=== PATIENT | male | born 1980 | race Two or more races ===

== ENCOUNTER → 2024-11-15 | Outpatient (CLI) | payer OTHER, SELFPAY ==
[2024-11-15 18:53] LABS: Absolute Neutrophil Count 3.5 X10^3/uL (2.0-7.7); Basophil# 0.06 X10^3/uL; Eosinophil# 0.03 X10^3/uL; Eosinophils% 0.5 % (0-5); Hematocrit 44.8 % (40-54); Hemoglobin 15.7 g/dL (13.0-16.5); Mean Corpuscular Hgb 32.2 pg (27.0-32.0); Mean Platelet Vol. 9.1 fl (6.2-12.0); Monocyte# 0.67 X10^3/uL; Monocyte% 11.6 % (0-10); NRBC Flagged by Analyzer 0 % (0-5); Neutrophil # 3.51 X10^3/uL (2.7-7.7); Neutrophil % 60.7 % (47-70); Platelet Count 303 K/mm3 (150-450); RBC Distribution Width SD 40.7 fl (35.1-43.9); Red Blood Count 4.87 M/mm3 (4.6-6.2); White Blood Count 5.8 K/mm3 (4.4-11.0)
[2024-11-15 19:30] LABS: ALB/GLOB Ratio 1.4 RATIO (0.9-2.4); AST(SGOT) 44 U/L (<=37); Alanine Aminotransfer ALT/SGPT 75 U/L (<=46); Albumin, Serum 4.7 g/dL (3.5-5.0); Alkaline Phosphatase 73 U/L (40-129); Anion Gap 14 (5-15); BUN 18 mg/dL (4-19); BUN/Creat Ratio 16.1 RATIO (10-20); Calcium,Total 10.1 mg/dL (7.6-11.0); Carbon Dioxide 23.1 mmol/L (21.0-32.0); Chloride 101 mmol/L (98-108); Creatinine, Serum 1.13 mg/dL (0.70-1.20); EST Glomerular Filtration Rate 83 (>60); Globulin 3.3 g/dL (2.2-4.2); Glucose 94 mg/dL (70-99); Potassium 4.4 mmol/L (3.3-5.1); Sodium Level 138 mmol/L (133-145); Total Bilirubin 0.48 mg/dL (0.00-1.30)
[2024-11-15 19:37] LABS: Vitamin B12 532 pg/mL (180-914); Vitamin D,25 Hydroxy 35.9 ng/mL (30-100)
== END | disposition home or self-care (01) ==
PROVIDERS: Referring Provider Nurse Practitioner Family; Visit Provider Nurse Practitioner Family
DX: R51.9 Headache, unspecified (principal); R25.1 Tremor, unspecified; R06.00 Dyspnea, unspecified; R61 Generalized hyperhidrosis; H93.11 Tinnitus, right ear; H93.239 Hyperacusis, unspecified ear; R41.89 Other symptoms and signs involving cognitive functions and awareness; G90.89 Other disorders of autonomic nervous system
CPT/HCPCS: 80053; 82306; 82607; 82627; 82746; 82955; 84402; 84403; 85025; 82626

== ENCOUNTER → 2025-06-02 | Outpatient (CLI) | payer SELFPAY ==
[2025-06-02 13:06] LABS: Hematocrit 50.6 % (40-54); Hemoglobin 17.5 g/dL (13.0-16.5); Immature Granulocytes Count 0.020 X10^3/uL (0.0-0.0); Mean Corp Hgb Conc 34.6 g/dL (32-36); Mean Corpuscular Volume 93.5 fL (80-94); Mean Platelet Vol. 9.1 fl (6.2-12.0); NRBC Flagged by Analyzer 0 % (0-5); Platelet Count 318 K/mm3 (150-450); RBC Distribution Width CV 11.6 % (11.6-14.6); RBC Distribution Width SD 39.9 fl (35.1-43.9); Red Blood Count 5.41 M/mm3 (4.6-6.2); White Blood Count 6.5 K/mm3 (4.4-11.0)
[2025-06-02 13:28] LABS: AST(SGOT) 46 U/L (<=37); Alanine Aminotransfer ALT/SGPT 68 U/L (<=46); Albumin, Serum 4.5 g/dL (3.5-5.0); Alkaline Phosphatase 62 U/L (40-129); Anion Gap 14 (5-15); BUN 14 mg/dL (4-19); BUN/Creat Ratio 12.5 RATIO (10-20); Calcium,Total 10.2 mg/dL (7.6-11.0); Carbon Dioxide 21.7 mmol/L (21.0-32.0); Chloride 99 mmol/L (98-108); Globulin 4.2 g/dL (2.2-4.2); Glucose 142 mg/dL (70-99); Potassium 4.4 mmol/L (3.3-5.1)
[2025-06-02 13:29] LABS: CRP < 3.00 mg/L (0.0-3.0)
[2025-06-03 05:07] LABS: CRP, High Sensitivity 1.97 mg/L (0.00-3.00)
[2025-06-05 12:09] LABS: Testosterone, % Free 3.10 % (1.50-4.20); Testosterone, Free 3.75 ng/dL (5.00-21.00)
== END | disposition home or self-care (01) ==
PROVIDERS: Referring Provider Nurse Practitioner Family; Visit Provider Nurse Practitioner Family
DX: R51.9 Headache, unspecified (principal); G90.89 Other disorders of autonomic nervous system; G89.29 Other chronic pain; R25.1 Tremor, unspecified; R06.00 Dyspnea, unspecified; R61 Generalized hyperhidrosis; H93.11 Tinnitus, right ear; H93.239 Hyperacusis, unspecified ear; R41.89 Other symptoms and signs involving cognitive functions and awareness; A68.1 Tick-borne relapsing fever; A44.9 Bartonellosis, unspecified; E29.1 Testicular hypofunction; A69.20 Lyme disease, unspecified
CPT/HCPCS: 80053; 82627; 83525; 84402; 84403; 85025; 85652; 86140; 86141; 82626